=== PATIENT | male | born 1970 | race Caucasian/White ===

== ENCOUNTER → 2021-08-25 | Outpatient (CLI) | payer MEDICAID | LOC: CSHWCC 21:37 | PROVIDERS: ATTEND Nurse Practitioner Family | DX: E11.621 Type 2 diabetes mellitus with foot ulcer (principal); E11.622 Type 2 diabetes mellitus with other skin ulcer; E11.42 Type 2 diabetes mellitus with diabetic polyneuropathy; L97.512 Non-pressure chronic ulcer of other part of right foot with fat layer exposed; L98.499 Non-pressure chronic ulcer of skin of other sites with unspecified severity; I10 Essential (primary) hypertension | CPT/HCPCS: 97607 ==

== ENCOUNTER 2021-09-05 08:52 | Outpatient (CLI) | payer MEDICAID | END 2021-09-05 08:53 | disposition home or self-care (01) | LOC: CSHWCC 08:52 | PROVIDERS: ATTEND Nurse Practitioner Family | DX: E11.621 Type 2 diabetes mellitus with foot ulcer (principal); E11.622 Type 2 diabetes mellitus with other skin ulcer; L97.512 Non-pressure chronic ulcer of other part of right foot with fat layer exposed; L98.499 Non-pressure chronic ulcer of skin of other sites with unspecified severity; E11.42 Type 2 diabetes mellitus with diabetic polyneuropathy; I10 Essential (primary) hypertension | CPT/HCPCS: 99212; G0463 ==

== ENCOUNTER 2021-09-12 10:24 | Outpatient (CLI) | payer MEDICAID | END 2021-09-12 10:25 | disposition home or self-care (01) | LOC: CSHWCC 10:24 | PROVIDERS: ATTEND Nurse Practitioner Family | DX: E11.621 Type 2 diabetes mellitus with foot ulcer (principal); E11.622 Type 2 diabetes mellitus with other skin ulcer; L97.512 Non-pressure chronic ulcer of other part of right foot with fat layer exposed; L98.499 Non-pressure chronic ulcer of skin of other sites with unspecified severity; E11.42 Type 2 diabetes mellitus with diabetic polyneuropathy; I10 Essential (primary) hypertension | CPT/HCPCS: 99213; G0463 ==

== ENCOUNTER 2021-09-26 09:36 | Outpatient (CLI) | payer MEDICAID | END 2021-09-26 09:37 | disposition home or self-care (01) | LOC: CSHWCC 09:36 | PROVIDERS: ATTEND Nurse Practitioner Family | DX: E11.621 Type 2 diabetes mellitus with foot ulcer (principal); E11.622 Type 2 diabetes mellitus with other skin ulcer; L97.512 Non-pressure chronic ulcer of other part of right foot with fat layer exposed; L98.499 Non-pressure chronic ulcer of skin of other sites with unspecified severity; E11.42 Type 2 diabetes mellitus with diabetic polyneuropathy; I10 Essential (primary) hypertension | CPT/HCPCS: 11042; 99212; G0463 ==

== ENCOUNTER 2021-10-12 09:27 | Outpatient (CLI) | payer MEDICAID | END 2021-10-12 09:28 | disposition home or self-care (01) | LOC: CSHWCC 09:27 | PROVIDERS: ATTEND Nurse Practitioner Family | DX: E11.621 Type 2 diabetes mellitus with foot ulcer (principal); E11.622 Type 2 diabetes mellitus with other skin ulcer; L97.512 Non-pressure chronic ulcer of other part of right foot with fat layer exposed; L98.499 Non-pressure chronic ulcer of skin of other sites with unspecified severity; E11.42 Type 2 diabetes mellitus with diabetic polyneuropathy; I10 Essential (primary) hypertension ==

== ENCOUNTER 2023-10-07 12:45 | Emergency (ER) | payer MEDICARE, MEDICAID | END 2023-10-07 13:59 | disposition home or self-care (01) | LOC: CSHERS 12:45 | DX: L03.031 Cellulitis of right toe (principal); I10 Essential (primary) hypertension; E11.9 Type 2 diabetes mellitus without complications; Z79.84 Long term (current) use of oral hypoglycemic drugs | CPT/HCPCS: 99283 ==

== ENCOUNTER 2025-09-29 19:46 | Emergency (ER) | payer MEDICAID, SELFPAY ==
[2025-09-29] MEDS ORDERED: Ibuprofen 200 MG TAB ONE (20:39)
[2025-09-29 21:10] LABS: #Basophils 0.07 10x3/uL (0.0-0.2); #Eosinophils 0.16 10x3/uL (0.0-0.5); #Monocytes 1.19 10x3/uL (0.0-1.1); #Neutrophils 8.61 10x3/uL (1.5-8.4); %Basophils 0.6 % (0.0-2.0); %Eosinophils 1.4 % (0.0-6.0); %Lymphocytes 14.7 % (18.0-47.0); %Monocytes 10.1 % (0.0-10.0); %Neutrophils 72.9 % (40.0-75.0); Hematocrit 40.6 % (38.8-50.0); Hemoglobin 14.3 g/dL (13.5-17.5); Mean Corpuscular Hemoglobin 29.6 pg (27.0-33.0); Mean Corpuscular Volume 84.1 fL (81.2-95.1); Platelet Count 209 10x3/uL (150-450); Red Blood Cell (RBC) Count 4.83 10x6/uL (4.32-5.72); White Blood Cell (WBC) Count 11.81 10x3/uL (3.5-10.5)
[2025-09-29 21:25] LABS: ALT (SGPT) 16 U/L (Less than 45); AST (SGOT) 15 U/L (11-34); Albumin 3.8 g/dL (3.1-4.5); Alkaline Phosphatase 123 U/L (40-110); Anion Gap 14 mmol/L (10-20); BUN (Urea Nitrogen) 39 mg/dL (8.4-25.7); Bilirubin, Total 0.8 mg/dL (0.3-1.2); Calc. Creatinine Clearance 0 mL/min (70-130); Calcium 9.4 mg/dL (7.8-10.44); Carbon Dioxide 25 mmol/L (22-29); Chloride 97 mmol/L (98-107); Globulin 3.4 g/dL (2.4-3.5); Glucose 385 mg/dL (70-105); Potassium 4.8 mmol/L (3.5-5.1); Sodium 131 mmol/L (136-145)
== END 2025-09-29 22:15 | disposition home or self-care (01) ==
LOC: CSHERS 19:46
DX: S90.31XA Contusion of right foot, initial encounter (principal); L03.115 Cellulitis of right lower limb; I10 Essential (primary) hypertension; E11.9 Type 2 diabetes mellitus without complications; Z55.6 Problems related to health literacy; W20.8XXA Other cause of strike by thrown, projected or falling object, initial encounter
CPT/HCPCS: 36415; 80053; 83605; 85025; 86140; 99283; J1815

== ENCOUNTER 2025-09-30 14:28 | Emergency (ER) | payer SELFPAY ==
[2025-09-30 16:22] LABS: Glucose, Urine (Dipstick) >=1000 mg/dL (Negative); Leukocyte Negative (Negative); Protein, Urine (Dipstick) 30 mg/dl (Neg-Trace); Specific Gravity, Urine 1.020 (1.005-1.030)
[2025-09-30 16:33] LABS: #Basophils 0.07 10x3/uL (0.0-0.2); #Eosinophils 0.23 10x3/uL (0.0-0.5); #Monocytes 0.71 10x3/uL (0.0-1.1); #Neutrophils 6.54 10x3/uL (1.5-8.4); %Basophils 0.8 % (0.0-2.0); %Eosinophils 2.5 % (0.0-6.0); %Lymphocytes 18.7 % (18.0-47.0); %Monocytes 7.6 % (0.0-10.0); %Neutrophils 70.2 % (40.0-75.0); Hematocrit 42.4 % (38.8-50.0); Hemoglobin 14.6 g/dL (13.5-17.5); Mean Corpuscular Hemoglobin 29.4 pg (27.0-33.0); Mean Corpuscular Volume 85.5 fL (81.2-95.1); Platelet Count 197 10x3/uL (150-450); Red Blood Cell (RBC) Count 4.96 10x6/uL (4.32-5.72); White Blood Cell (WBC) Count 9.31 10x3/uL (3.5-10.5)
[2025-09-30 16:47] LABS: ALT (SGPT) 12 U/L (Less than 45); AST (SGOT) 22 U/L (11-34); Albumin 3.9 g/dL (3.1-4.5); Alkaline Phosphatase 125 U/L (40-110); Anion Gap 18 mmol/L (10-20); BUN (Urea Nitrogen) 45 mg/dL (8.4-25.7); Bilirubin, Total 0.8 mg/dL (0.3-1.2); Calc. Creatinine Clearance 0 mL/min (70-130); Calcium 10.1 mg/dL (7.8-10.44); Carbon Dioxide 19 mmol/L (22-29); Chloride 98 mmol/L (98-107); Globulin 4.2 g/dL (2.4-3.5); Glucose 358 mg/dL (70-105); Lipase 543 U/L (8-78); Magnesium 2.1 mg/dL (1.6-2.6); Potassium 4.8 mmol/L (3.5-5.1); Sodium 130 mmol/L (136-145)
[2025-09-30] MEDS ORDERED: cefTRIAXone (ROCEPHIN) 2 GM VIAL ONE (17:01)
[2025-09-30 17:09] LABS: Bacteria/HPF Rare-Few HPF (None Seen); CAUTI Indications for Culture Fever or rigors; RBC/HPF 0-3 HPF (0-3); WBC/HPF 0-3 HPF (0-3)
[2025-09-30 17:11] LABS: Urine Culture Reflex No No
[2025-09-30 17:21] LABS: Actual Bicarbonate (HCO3v) 20.0 mEq/L (22-28); Analyzer IN Cardio CS ER; Base Excess -4.1 mEq/L (-2 - +2); Calcium, Ionized (venous) 1.18 mmol/L (1.16-1.32); Chloride (VBG) 101 mmol/L (98-106); Hematocrit-VBG 42 % (42.0-52.0); Hemoglobin (Hb) 14.4 g/dL (13.1-17.2); Potassium (VBG) 4.39 mmol/L (3.70-5.30); Puncture Site Other Site; Sodium 136 mmol/L (133-146)
== END 2025-09-30 18:12 | disposition home or self-care (01) ==
LOC: CSHERS 14:28
DX: L03.115 Cellulitis of right lower limb (principal); M24.471 Recurrent dislocation, right ankle; E11.65 Type 2 diabetes mellitus with hyperglycemia; R74.8 Abnormal levels of other serum enzymes; I10 Essential (primary) hypertension; E11.9 Type 2 diabetes mellitus without complications; Z79.84 Long term (current) use of oral hypoglycemic drugs
CPT/HCPCS: 36416; 80053; 81001; 82010; 82805; 83605; 83690; 83735; 84100; 85025; 96361; 96365; 96375; J0696; J1815